=== PATIENT | male | born 1975 | race Caucasian/White ===

== ENCOUNTER 2017-02-26 10:55 | Emergency (ER) | payer OTHER ==
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
--- NOTE | 2017-02-26 14:03 | DIAGNOSTIC IMAGING REPORT ---
PROCEDURE: XR ELBOW 1 OR 2 VIEWS - LEFT INDICATION: POST REDUCTION TECHNIQUE: Two views (1335 hours). COMPARISON: Comparison made radiographs of the left elbow earlier today (02/26/2017, 1135 hours). FINDINGS: Interval reduction of dislocated left elbow joint in near anatomic position. Findings suggest comminuted fracture of the left coronoid process. IMPRESSION: 1. Interval reduction of dislocated left glenohumeral joint (near anatomic position). 2. Findings suggest comminuted fracture of the coronoid process of the left ulna.
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
--- NOTE | 2017-02-26 14:34 | DIAGNOSTIC IMAGING REPORT ---
PROCEDURE: CT UPPER EXT W/O CONT - LEFT CLINICAL INDICATION: Follow-up left elbow fracture dislocation. TECHNIQUE: Thin-cut noncontrast axial images with sagittal and coronal reformations. COMPARISON: Comparison made radiographs of the left elbow earlier today (02/26/2017). FINDINGS: Interval reduction of dislocated left elbow joint. There is a comminuted fracture of the coronoid process of the ulna extending to the medial ulnar rim, associated with splaying of fracture fragments and probable loose bodies. There is a mildly impacted fracture of the posterior articular surface of the medial humeral condyle with multiple fragments and probable loose bodies. There is a mildly impacted fracture of the posterior articular surface of the lateral humeral condyle with loose bodies. IMPRESSION: 1. There is a comminuted fracture of the coronoid process which extends medially to involve the medial rim articular surface. Findings are associated with multiple fragments and probable loose bodies 2. There are posterior impaction fractures of the articular surfaces of the medial and lateral femoral condyles with loose bodies. 3. Findings discussed with Dr. Justa Flores. All CT scans at this facility use dose modulation, iterative reconstruction, and/or weight-based dosing when appropriate to reduce radiation dose to as low as reasonably achievable.
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
--- NOTE | 2017-02-26 17:03 | ED ORDER SUMMARY ---
..... Patient: MARIBELL GOLDMAN OrderSheet [facility] VisitID: [id number] [place] [address] 42y, M Registration Date/Time: 02/26/2017 ORDER SHEET Weight: 86.1 kg (stated) Allergies: No Known Drug Allergy GENERAL ORDERS: Elbow 3 or 4V Right Urgent (11:02/26/2017 Fabián GERARD) (Ack 11:11 María) (11:57 KHoerner) CBC w Diff Urgent (11:02/26/2017 Fabián GERARD) (Ack 11:11 María) (11:17 Camiloeck R.N.) CMP Urgent (11:02/26/2017 Fabián GERARD) (Ack 11:11 María) (11:17 JSdanaeck R.N.) NPO (11:02/26/2017 Fabián GERARD) (11:12 LWhalen R.N.) Elbow 2V Left Urgent (13:19 02/26/2017 AURAoededrickner verbal order read back to Fabián GERARD) (Ack 13:20 Nakulner) (13:27 AURAoerner) Shoulder 2V or more Left Urgent (13:26 02/26/2017 Fabián GERARD) (13:27 AURAoerner) CT Upp Ext wo Cont Left (Elbow) Urgent (13:29 02/26/2017 Fabián GERARD) (Ack 13:30 AURAoededrickner) (14:27 Cate) Splint (UE) (Left) (long-arm posterior mold) (13:29 02/26/2017 Fabián GERARD) (Ack 13:43 María) (14:19 PWeiler ER Tech1) Sling - arm (17:03 02/26/2017 Fabián GERARD) (17:18 AURAoeche) MEDICATION ORDERS: IV FLUIDS: Dilaudid IV 1 mg (HIGH ALERT MEDICATION, NOW) (11:08 02/26/2017 LWantelmo R.N. verbal order read back to Fabián GERARD) (11:09 LWhalen R.N.) IV NS : initial bolus 1000 mL (1000 mL/hr), then none - (NOW) (11: 02/26/2017 Fabián GERARD) (11:12 Jeffy R.N.) Dilaudid IV 1 mg (HIGH ALERT MEDICATION, NOW) (12:42 02/26/2017 Fabián GERARD) (12:51 Jeffy Vazquez.N.) Propofol IV 100mg (HIGH ALERT MEDICATION, NOW) (13:34 02/26/2017 Nery Can verbal order read back to Fabián GERARD) (13:48 Jeffy R.N.) ORDER SHEET NOTES: [Electronically signed by Kerline Monroy R.N. (17:29 02/26/2017)] [Electronically signed by Justa Flores MD (00:06 02/28/2017)] [Electronically locked/signed by Kerline Monroy R.N. (17:02/26/2017)]
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
--- NOTE | 2017-02-26 17:03 | ED ORDER SUMMARY ---
..... Patient: MARIBELL GOLDMAN OrderSheet [facility] VisitID: [id number] [place] [address] 42y, M Registration Date/Time: 02/26/2017 ORDER SHEET Weight: 86.1 kg (stated) Allergies: No Known Drug Allergy GENERAL ORDERS: Elbow 3 or 4V Right Urgent (11:02/26/2017 Fabián GERARD) (Ack 11:11 María) (11:57 KHoerner) CBC w Diff Urgent (11:02/26/2017 Fabián GERARD) (Ack 11:11 María) (11:17 Camiloeck R.N.) CMP Urgent (11:02/26/2017 Fabián GERARD) (Ack 11:11 María) (11:17 JSdanaeck R.N.) NPO (11:02/26/2017 Fabián GERARD) (11:12 LWhalen R.N.) Elbow 2V Left Urgent (13:19 02/26/2017 AURAoededrickner verbal order read back to Fabián GERARD) (Ack 13:20 Nakluner) (13:27 AURAoerner) Shoulder 2V or more Left Urgent (13:26 02/26/2017 Fabián GERARD) (13:27 AURAoerner) CT Upp Ext wo Cont Left (Elbow) Urgent (13:29 02/26/2017 Fabián GERARD) (Ack 13:30 AURAoededrickner) (14:27 Cate) Splint (UE) (Left) (long-arm posterior mold) (13:29 02/26/2017 Fabián GERARD) (Ack 13:43 María) (14:19 PWeiler ER Tech1) Sling - arm (17:03 02/26/2017 Fabián GERARD) (17:18 AURAoeche) MEDICATION ORDERS: IV FLUIDS: Dilaudid IV 1 mg (HIGH ALERT MEDICATION, NOW) (11:08 02/26/2017 LWantelmo R.N. verbal order read back to Fabián GERARD) (11:09 LWhalen R.N.) IV NS : initial bolus 1000 mL (1000 mL/hr), then none - (NOW) (11: 02/26/2017 Fabián GERARD) (11:12 Jeffy R.N.) Dilaudid IV 1 mg (HIGH ALERT MEDICATION, NOW) (12:42 02/26/2017 Fabián GERARD) (12:51 Jeffy Vazquez.N.) Propofol IV 100mg (HIGH ALERT MEDICATION, NOW) (13:34 02/26/2017 Nery Can verbal order read back to Fabián GERARD) (13:48 Jeffy R.N.) ORDER SHEET NOTES: [Electronically signed by Kerline Monroy R.N. (17:29 02/26/2017)] [Electronically signed by Justa Flores MD (00:06 02/28/2017)] [Electronically locked/signed by Kerline Monroy R.N. (17:02/26/2017)]
--- NOTE | 2017-02-28 00:07 | ED MAR SUMMARY ---
..... Medication Administration Record [facility] [address] [place] [address] Patient: MARIBELL GOLDMAN Visit ID: [id number] 42y, M Weight: 86.1 kg Height/Length: 72 in BMI: 25.8 ALLERGIES: No Known Drug Allergy Given 11:09 02/26/2017 Kerline Monroy R.N. Medication Administered: DILAUDID [IVP] (HYDROMORPHONE HCL PF), Dose: 1 mg IVP over 2 minute(s), Site: #1 right hand. Medication Ordered: Dilaudid IV 1 mg (HIGH ALERT MEDICATION, NOW). Start 11:12 02/26/2017 Kerline Monroy R.N., Stop 12:50 02/26/2017 Kerline Monroy R.N. Medication Administered: IV NS (SALINE), Dose: IV Fluids over 1 hour(s), Rate: 1000 mL/hr, Dispensed: 1000 mL bag, Site: #1 right hand. Medication Ordered: IV NS : initial bolus 1000 mL (1000 mL/hr), then none - (NOW). Given 12:51 02/26/2017 Kerline Monroy R.N. Medication Administered: DILAUDID [IVP] (HYDROMORPHONE HCL PF), Dose: 1 mg IVP over 2 minute(s), Site: #1 right hand. Medication Ordered: Dilaudid IV 1 mg (HIGH ALERT MEDICATION, NOW). Start 12:52 02/26/2017 Kerline Monroy R.N., Stop 17:19 02/26/2017 Kerline Monroy R.N. Medication Administered: IV NS (SALINE), Dose: IV Fluids over 8 hour(s), Rate: 100 mL/hr, Dispensed: 1000 mL bag, Site: #1 right hand. Medication Ordered: IV NS : initial bolus 1000 mL (1000 mL/hr), then none - (NOW). Given 13:16 02/26/2017 Kerline Monroy R.N. Medication Administered: PROPOFOL [IVP], Dose: 100 mg IVP over 2 minute(s), Site: #1 right hand. Medication Ordered: Propofol IV 100mg (HIGH ALERT MEDICATION, NOW).
--- NOTE | 2017-02-28 00:07 | ED MAR SUMMARY ---
..... Medication Administration Record [facility] [address] [place] [address] Patient: MARIBELL GOLDMAN Visit ID: [id number] 42y, M Weight: 86.1 kg Height/Length: 72 in BMI: 25.8 ALLERGIES: No Known Drug Allergy Given 11:09 02/26/2017 Kerline Monroy R.N. Medication Administered: DILAUDID [IVP] (HYDROMORPHONE HCL PF), Dose: 1 mg IVP over 2 minute(s), Site: #1 right hand. Medication Ordered: Dilaudid IV 1 mg (HIGH ALERT MEDICATION, NOW). Start 11:12 02/26/2017 Kerline Monroy R.N., Stop 12:50 02/26/2017 Kerline Monroy R.N. Medication Administered: IV NS (SALINE), Dose: IV Fluids over 1 hour(s), Rate: 1000 mL/hr, Dispensed: 1000 mL bag, Site: #1 right hand. Medication Ordered: IV NS : initial bolus 1000 mL (1000 mL/hr), then none - (NOW). Given 12:51 02/26/2017 Kerline Monroy R.N. Medication Administered: DILAUDID [IVP] (HYDROMORPHONE HCL PF), Dose: 1 mg IVP over 2 minute(s), Site: #1 right hand. Medication Ordered: Dilaudid IV 1 mg (HIGH ALERT MEDICATION, NOW). Start 12:52 02/26/2017 Kerline Monroy R.N., Stop 17:19 02/26/2017 Kerline Monroy R.N. Medication Administered: IV NS (SALINE), Dose: IV Fluids over 8 hour(s), Rate: 100 mL/hr, Dispensed: 1000 mL bag, Site: #1 right hand. Medication Ordered: IV NS : initial bolus 1000 mL (1000 mL/hr), then none - (NOW). Given 13:16 02/26/2017 Kerline Monroy R.N. Medication Administered: PROPOFOL [IVP], Dose: 100 mg IVP over 2 minute(s), Site: #1 right hand. Medication Ordered: Propofol IV 100mg (HIGH ALERT MEDICATION, NOW).
--- NOTE | 2017-02-28 00:07 | ED MED RECONCILIATION SUMMARY ---
Patient: MARIBELL GOLDMAN Medication Reconciliation Report [facility] VisitID: [id number] [place] [address] 42y, M Registration Date/Time: 02/26/2017 Weight: 86.1 kg Height/Length: 72 in. BMI: 25.8 ALLERGIES: No Known Drug Allergy The patient's Home Medications are listed below: NONE. The source(s) of the original Home Medication information: Not obtained. The following Medications were given to the patient in the Emergency Department: Dilaudid [IVP] IVP 1 mg, administered: 02/26/2017 11:09:00 AM IV NS IV Fluids bolus 0, then 1000 mL/hr, administered: 02/26/2017 11:12:00 AM Dilaudid [IVP] IVP 1 mg, administered: 02/26/2017 12:51:00 PM IV NS IV Fluids bolus 0, then 100 mL/hr, administered: 02/26/2017 12:52:00 PM PROPOFOL [IVP] IVP 100 mg, administered: 02/26/2017 1:16:00 PM The following Medications were prescribed to the patient: Percocet 5 mg/325 mg: take 1-2 tablets orally every 4 hours as needed for pain. Dispense thirty (30). One refill. Substitution is permissible. -- Justa Flores MD
--- NOTE | 2017-02-28 00:07 | ED DISCHARGE INSTRUCTIONS ---
Patient: MARIBELL GOLDMAN General Instructions [facility] VisitID: [id number] [address] [place] [address] 42y, M Registration Date/Time: 02/26/2017 Dislocation of the left elbow with the ulna displaced posteriorly with humerus fracture, reduction in ER. No nerve deficit or vascular deficit. Closed nondisplaced comminuted fracture of the distal left humerus. Closed displaced coronoid process fracture of the left ulna. INSTRUCTIONS Wear sling as needed. Wear fiberglass splint until released. Warnings: SEDATIVE MEDICATION: You were given sedative medication during your visit. Do not drive or operate dangerous machinery for 12 hours. GENERAL WARNINGS: Return or contact your physician immediately if your condition worsens or changes unexpectedly, if not improving as expected, or if other problems arise. Prescription Medications: Percocet 5 mg/325 mg: take 1-2 tablets orally every 4 hours as needed for pain. Dispense thirty (30). One refill. Substitution is permissible. Understanding of the discharge instructions verbalized by patient and family. Follow-up with: Gustavo Short M.D., Ortho, , [address], [facility] [place] [address] Follow up in two weeks. Call for an appointment. Reason for referral: Follow up fracture-dislocation of the elbow. ADDITIONAL INFORMATION Elbow Dislocation An elbow dislocation may occur after a fall onto an outstretched arm or in a car accident. When the hand hits a hard surface, the force is sent to the elbow, tearing ligaments and forcing the bones out of joint. Usually no bones are broken. However, the nearby nerves and blood vessels can be damaged. Once the joint is put back in place, it will take about six weeks for the ligaments to heal. For simple dislocations, a splint or sling will be applied for the first few weeks. Range of motion exercises or physical therapy will be prescribed early in your recovery to prevent the elbow joint from getting stiff. Later, strengthening exercises may be added. In more severe cases, surgery may be needed to realign the joint and repair the torn ligaments or broken bones. Most elbow dislocations heal fully. But there is some risk of arthritis or loss of full range of motion in that joint. Home Care: 1) Keep your arm elevated to reduce pain and swelling. When sitting or lying down elevate your arm above the level of your heart. You can do this by placing your arm on a pillow that rests on your chest or on a pillow at your side. This is most important during the first 48 hours after injury. 2) Apply an ice pack (ice cubes in a plastic bag, wrapped in a towel) over the injured area for 20 minutes every 1-2 hours the first day. You can place the ice pack inside the sling and directly over the splint/cast. Continue with ice packs 3-4 times a day for the next two days, then as needed for the relief of pain and swelling. 3) Keep the splint/cast completely dry at all times. Bathe with your splint/cast out of the water, protected with a large plastic bag, rubber-banded at the top end. If a fiberglass splint/cast gets wet, you can dry it with a hair-dryer. 4) You may use acetaminophen (Tylenol) or ibuprofen (Motrin, Advil) to control pain, unless another pain medicine was prescribed. [ NOTE : If you have chronic liver or kidney disease or ever had a stomach ulcer or GI bleeding, talk with your doctor before using these medicines.] 5) No sports or P.E. until cleared by your doctor. Follow Up with your doctor in one week or as advised by our staff. Ask your doctor when to begin range of motion exercises to prevent the elbow from getting stiff. [ NOTE: Any X-rays taken will be reviewed by a radiologist. You will be notified of any new findings that may affect your care.] Get Prompt Medical Attention if any of the following occur: -- The plaster splint becomes wet or soft -- The fiberglass splint remains wet for more than 24 hours -- Increased tightness or pain in the elbow -- Fingers become swollen, cold, blue, numb or tingly Fracture:Elbow You have a break (fracture) of the elbow. This may be a small crack in the bone; or a major break with the broken parts pushed out of position. This fracture usually takes 4-12 weeks to heal, depending on the type. Initial treatment is with a splint or cast. Severe fractures may require surgery to put the bone fragments back into place. Home Care: Keep your arm elevated to reduce pain and swelling. When sitting or lying down elevate your arm above the level of your heart. You can do this by placing your arm on a pillow that rests on your chest or on a pillow at your side. This is most important during the first 48 hours after injury. Apply an ice pack (ice cubes in a plastic bag, wrapped in a towel) over the injured area for 20 minutes every 1-2 hours the first day. You can place the ice pack inside the sling and directly over the splint/cast. Continue with ice packs 3-4 times a day for the next two days, then as needed for the relief of pain and swelling. Keep the splint/cast completely dry at all times. Bathe with your splint/cast out of the water, protected with a large plastic bag, rubber-banded at the top end. If a fiberglass splint/cast gets wet, you can dry it with a hair-dryer. You may use acetaminophen (Tylenol) or ibuprofen (Motrin, Advil) to control pain, unless another pain medicine was prescribed. [NOTE: If you have chronic liver or kidney disease or ever had a stomach ulcer or GI bleeding, talk with your doctor before using these medicines.] Follow Up with your doctor in one week, or as advised by our staff, to be sure the bone is healing properly. If a splint was applied, it will be changed to a cast during your follow-up visit. [NOTE: A radiologist will review any X-rays that were taken. We will notify you of any new findings that may affect your care.] Get Prompt Medical Attention if any of the following occur: The plaster cast or splint becomes wet or soft The fiberglass cast or splint remains wet for more than 24 hours Increased tightness or pain under the cast or splint Fingers become swollen, cold, blue, numb or tingly Sling A sling is designed to support your arm in a position of rest. It is used for injuries of the hand, forearm, upper arm, and shoulder. A shoulder that is immobilized too long can become stiff and lose range of motion. Follow up with your doctor as advised and do not use the sling longer than directed. Home Use: Leave the sling in place as long as directed by your doctor. Unless told otherwise, you may remove it when bathing, dressing, and when you go to sleep. The sling is adjustable. If it becomes loose, adjust it so that your forearm is horizontal (level with the ground). Your hand should be level with the elbow. Splint Care, Fiberglass The following will help you care for your splint: It will take up totwo hours for your fiber glass splint to fully harden; therefore, do notapply any pressure on it during that time or else it may break. To prevent swelling under the splint, for thefirst 48 hours: If the splint is on yourarm, keep it in a sling or raised to shoulder level when sitting or standing; rest it on your chest or on a pillow at your side when lying down. If the splint is on yourfoot, keep it propped up above the level of your waist when sitting or lying. Avoid crutch walking as much as possible during this time. Keep the splint/cast dry at all times. Bathe with your splint/cast well out of the water, protected with a large plastic bag, rubber-banded at the top end. If a fiberglass cast or splint gets wet, you can dry it with a hair-dryer. Follow-up care Follow up with your doctor or this facility as advised. When to seek medical care Get prompt medical attention if any of the following occur: Bad odor from the splint or wound-fluid stains the splint The splint cracks or remains wet over 24 hours Increasing tightness or pressure under the splint Fingers or toes become swollen, cold, blue, numb or tingly Increased pain under the splint Procedural Sedation (Adult) You have been given medicine by vein to sedate you during your procedure. This may have included both a pain medicine and sleeping medicine. Most of the effects have worn off. But you may continue to have some drowsiness for the next 6 to 8 hours. Home Care Follow these guidelines when you get home: For the next 8 hours, you should be watched by a responsible adult to look for any worsening of your condition. Do not take any oral medicine for pain or sleep during the next 4 hour, since this might react with the medicines you were given in the hospital causing a much stronger response than usual. Do not drink any alcoholfor the next 24 hours. [address] not [address]or operate dangerous machinery during the next 24 hours. Follow-up care Follow up with your health care provider if you are not alert and back to your usual level of activity within 12 hours. When to seek medical care Get prompt medical attention if any of these occur: Increased drowsiness Increased weakness or dizziness Repeated vomiting You cannot be awakened You have been given the following additional information: Elbow Dislocation Elbow Fracture Sling Splint Care, Fiberglass Procedural Sedation (Adult) (Electronically signed by Justa Flores MD 02/28/2017 0:06)
--- NOTE | 2017-02-28 00:07 | ED MED RECONCILIATION SUMMARY ---
Patient: MARIBELL GOLDMAN Medication Reconciliation Report [facility] VisitID: [id number] [place] [address] 42y, M Registration Date/Time: 02/26/2017 Weight: 86.1 kg Height/Length: 72 in. BMI: 25.8 ALLERGIES: No Known Drug Allergy The patient's Home Medications are listed below: NONE. The source(s) of the original Home Medication information: Not obtained. The following Medications were given to the patient in the Emergency Department: Dilaudid [IVP] IVP 1 mg, administered: 02/26/2017 11:09:00 AM IV NS IV Fluids bolus 0, then 1000 mL/hr, administered: 02/26/2017 11:12:00 AM Dilaudid [IVP] IVP 1 mg, administered: 02/26/2017 12:51:00 PM IV NS IV Fluids bolus 0, then 100 mL/hr, administered: 02/26/2017 12:52:00 PM PROPOFOL [IVP] IVP 100 mg, administered: 02/26/2017 1:16:00 PM The following Medications were prescribed to the patient: Percocet 5 mg/325 mg: take 1-2 tablets orally every 4 hours as needed for pain. Dispense thirty (30). One refill. Substitution is permissible. -- Justa Flores MD
== END 2017-02-26 17:20 | disposition home or self-care (01) ==
LOC: ED SRH 10:55
DX: S52.042A Displaced fracture of coronoid process of left ulna, initial encounter for closed fracture (principal); S42.495A Other nondisplaced fracture of lower end of left humerus, initial encounter for closed fracture; S53.105A Unspecified dislocation of left ulnohumeral joint, initial encounter; V18.4XXA Pedal cycle driver injured in noncollision transport accident in traffic accident, initial encounter; Y93.89 Activity, other specified; Y92.410 Unspecified street and highway as the place of occurrence of the external cause; Y99.8 Other external cause status